=== PATIENT | female | born 1980 | race Hispanic/Latino ===

== ENCOUNTER 2022-06-17 03:44 | Emergency (ER) | payer BC ==
[~2022-06-17] VITALS: Ht 157.5 cm; Wt 86.2 kg
[2022-06-17 04:13] LABS: BASOPHILS % 0.5 % (0.0-1.0); EOSINOPHILS # (AUTO) 0.2 (0.0-0.4); EOSINOPHILS % 2.9 % (0.0-6.0); HEMATOCRIT 40.4 % (34.2-44.1); HEMOGLOBIN 13.2 g/dL (12.0-16.0); LYMPHOCYTES # (AUTO) 2.8 (1.0-3.2); LYMPHOCYTES % 43.2 % (18.0-39.1); MEAN CORPUSCULAR HEMOGLOBIN 29.8 pg (28-32); MEAN CORPUSCULAR HGB CONC 32.7 g/dL (31-35); MEAN CORPUSCULAR VOLUME 91.2 fL (81-99); MONOCYTES # (AUTO) 0.4 (0.2-0.8); MONOCYTES % 5.5 % (4.4-11.3); NEUTROPHILS % 46.4 % (38.7-80.0); PLATELET COUNT 257 x10e3/uL (140-360); RED BLOOD COUNT 4.43 x10e6/uL (3.6-5.1); RED CELL DISTRIBUTION WIDTH 12.8 % (11.7-14.4)
[2022-06-17] MEDS ORDERED: KETOROLAC TROMETHAMINE 30 MG/ML VIAL IV STA (04:13)
[2022-06-17] MEDS ORDERED: ONDANSETRON HCL INJ 2MG/ML 2ML 2 MG/ML VIAL IV STA (04:13)
[2022-06-17 04:14] LABS: CLARITY,URINE CLOUDY (CLEAR); COLOR,URINE RED (YELLOW); KETONES,URINE NEGATIVE (NEGATIVE); LEUKOCYTE ESTERASE ,URINE TRACE (NEGATIVE); NITRITE,URINE NEGATIVE (NEGATIVE); PROTEIN,URINE DIPSTICK 2+ (NEGATIVE); URINE UROBILINOGEN 0.2 mg/dL (0.2 - 1)
[2022-06-17 04:19] LABS: BACTERIA,URINE FEW /HPF; EPITHELIAL CELLS,URINE RARE /LPF; RBC,URINE >50 /HPF (0-5); WBC,URINE (MAN) 0-5 /HPF (0-5)
[2022-06-17 04:32] LABS: ALBUMIN 3.8 g/dL (3.5-5.0); ALBUMIN/GLOBULIN RATIO 1.1 (0.8-2.0); ANION GAP 12.9 mmol/L (8-16); CALCIUM 9.1 mg/dL (8.4-10.2); CREATININE, SERUM 0.98 mg/dL (0.57-1.11); POTASSIUM 3.9 mmol/L (3.5-5.1)
[2022-06-17] MEDS ORDERED: KETOROLAC TROME10 MG PO (05:25)
[2022-06-17] MEDS ORDERED: ONDANSETRON ODT4 MG PO (05:25)
[2022-06-17] MEDS ORDERED: HYDROCODON-ACE1 EA12 PO (05:25)
[2022-06-17] MEDS ORDERED: CEFDINIR300 MG PO (05:25)
[2022-06-17 05:42] VITALS: BP 141/85
== END 2022-06-17 05:40 | disposition home or self-care (01) ==
LOC: MERGE 03:47 → ER 03:47
DX: R50.9 Fever, unspecified (principal); N13.2 Hydronephrosis with renal and ureteral calculous obstruction; R10.32 Left lower quadrant pain; F41.9 Anxiety disorder, unspecified; M35.00 Sjogren syndrome, unspecified
CPT/HCPCS: 36415; 74176; 80053; 81001; 81025; 85025; 87086; 99284; J1885; J2405

== ENCOUNTER 2024-04-30 21:10 | Emergency (ER) | payer BC ==
[~2024-04-30] VITALS: Ht 157.5 cm; Wt 86.6 kg
[~2024-04-30 21:10] MED LIST: CEFDINIR300 MG PO; HYDROCODON-ACE1 EA12 PO; KETOROLAC TROME10 MG PO; ONDANSETRON ODT4 MG PO
[2024-04-30] MEDS ORDERED: DEXAMETHASONE SOD PHOS INJ 4 MG/ML SDV ONE (21:51)
[2024-04-30] MEDS: DEXAMETHASONE SOD PHOS 10 MG/1 ML VIAL IM ONE (22:00)
[2024-04-30] MEDS: ONDANSETRON HCL 4 MG ORAL DISINTEGRATING TAB PO ONE (22:00)
[2024-04-30] MEDS ORDERED: ONDANSETRON ODT4 MG PO (22:09)
[2024-04-30] MEDS: KETOROLAC TROMETHAMINE 60 MG/2 ML VIAL IM ONE (22:39)
[2024-04-30 22:51] VITALS: PULSE 93; RESP 16; TEMP 98; O2SAT 98
== END 2024-04-30 22:52 | disposition home or self-care (01) ==
LOC: FSED 21:31 → MERGE 21:31 → FSED 22:52
DX: G43.909 Migraine, unspecified, not intractable, without status migrainosus (principal); R11.0 Nausea; R53.1 Weakness; Z11.52 Encounter for screening for COVID-19
CPT/HCPCS: 0223U; 87400; 99283; J1100; J1885; Q0162